=== PATIENT | female | born 1970 | race Caucasian/White ===

== ENCOUNTER 2022-10-03 06:36 | Day surgery (SDC) | payer BC ==
[~2022-10-03] VITALS: Ht 157.5 cm; Wt 74.8 kg
[~2022-10-03 06:36] MED LIST: ALLEGRA-D 1212 HOUR PO; AMOXICILLIN500 MG PO; ATORVASTATIN CA10 MG PO; FLONASE NASAL50 MCG; NAPROSYN500 MG PO; ORTHO TRI-CY OR; TOPROL XL50 MG PO; XYZAL ALLERGY 245 MG NAB; ZPAK PO
[2022-10-03 08:24] VITALS: BP 118/80
== END 2022-10-03 08:18 | disposition home or self-care (01) | DRG 951 ==
LOC: ENDO 06:36
PROVIDERS: ATTEND Internal Medicine Gastroenterology
PROC: 0DJD8ZZ Inspection of Lower Intestinal Tract, Via Natural or Artificial Opening Endoscopic (ICD-10-PCS; principal; 2022-10-03)
DX: Z12.11 Encounter for screening for malignant neoplasm of colon (principal); K64.8 Other hemorrhoids; E78.5 Hyperlipidemia, unspecified